=== PATIENT | female | born 1960 | race Caucasian/White ===

== ENCOUNTER 2017-09-28 21:10 | Emergency (ER) | payer BC, OTHER ==
[~2017-09-28] VITALS: Ht 165.1 cm; Wt 63.5 kg
--- NOTE | 2017-09-28 21:36 | NUR ---
PT AMBULATED TO ER WITH C/O HEADACHE THAT STARTED 7 DAYS AGO. AAOX4. ABLE TO SPEAK IN COMPLETE SENTENCES. RESPONSIVE TO VERBAL + TACTILE STIMUIL. RESPIRATIONS EVEN + UNLABORED. PER PT, SHE HAS NOT TAKEN ANY MEDICATION TO RELIEVE HEADACHE. FAMILY AT BEDSIDE.
--- NOTE | 2017-09-28 22:14 | NUR ---
Patient discharged to home in stable conditon. Written and verbal after care instructions given. Patient verbalizes understanding of instructions. pt ambulated out of ER in steady gait. Accompanied by family. VSS.
[2017-09-28 22:15] VITALS: BP 147/72
== END 2017-09-28 22:14 | disposition home or self-care (01) ==
LOC: ER 21:12
DX: R51 Headache (principal)
CPT/HCPCS: A4663

== ENCOUNTER 2019-04-15 20:29 | Emergency (ER) | payer OTHER ==
[~2019-04-15] VITALS: Ht 162.6 cm; Wt 62.1 kg
--- NOTE | 2019-04-15 20:46 | NUR ---
Dr. Morse at bedside for MSE.
--- NOTE | 2019-04-15 20:49 | NUR ---
Pt verbally discharged by Dr. Morse. Patient discharged to home in stable conditon. Pt given discharge instructions verbally. Patient verbalizes understanding of instructions. Pt out of ER with steady gait, no acute signs of distress, VSS, all belongings taken.
[2019-04-15 20:55] VITALS: BP 116/74
== END 2019-04-15 20:55 | disposition home or self-care (01) ==
LOC: ER 20:34
DX: R04.0 Epistaxis (principal); Z88.5 Allergy status to narcotic agent
CPT/HCPCS: A4663